=== PATIENT | male | born 1995 | race Caucasian/White ===

== ENCOUNTER 2022-05-21 22:40 | Inpatient (IN) | payer BC, MEDICAID, OTHER ==
[~2022-05-21] VITALS: Ht 182.9 cm; Wt 83.9 kg
--- NOTE | 2022-05-21 23:30 | NUR ---
BIBMOTHER. VOMMITED BLOOD X 3-4 EPISODE RED TO DARK RED BLOOD. PT IS AAOX4. PATIENT ABLE TO MAKE NEEDS KNOWN. VITALS CHECKED.
[2022-05-22] MEDS ORDERED: HYDROMORPHONE INJ 2 MG/ML DISP.SYRIN IV ONE
[2022-05-22] MEDS ORDERED: PANTOPRAZOLE 80 MG in IV NS 0.9% 500 ML IV ONE ×2
[2022-05-22] MEDS ORDERED: IV NS 0.9% 1,000 ML BAG IV ONE
[2022-05-22] MEDS ORDERED: ONDANSETRON HCL/PF 4 MG/2 ML VIAL IVP ONE
[2022-05-22] MEDS ORDERED: ONDANSETRON HCL/PF 4 MG/2 ML VIAL ONE (00:06)
[2022-05-22] MEDS ORDERED: PANTOPRAZOLE 40 MG VIAL ONE ×2 (00:06→08:37)
[2022-05-22] MEDS ORDERED: HYDROMORPHONE 1 MG/1 ML DISP.SYRIN ONE (00:07)
--- NOTE | 2022-05-22 00:21 | NUR ---
IV CANNULA INSERTED ON LEFT AC G18. BLOOD DRAWN AND SENT TO LAB
--- NOTE | 2022-05-22 00:22 | NUR ---
RECTAL EXAM DONE BY DR HADDAD. SPECIMEN SENT TO LAB
--- NOTE | 2022-05-22 00:22 | NUR ---
COVID SWAB DONE
[2022-05-22 00:34] LABS: BASOPHILS % (AUTO) 0.1 % (0.0-2.0); EOSINOPHILS % (AUTO) 0.2 % (0.0-6.0); HEMATOCRIT 45 % (39-51); HEMOGLOBIN 15.1 g/dL (13.5-17.5); LYMPHOCYTES # (AUTO) 0.5 K/uL (0.8-4.8); LYMPHOCYTES % (AUTO) 4.9 % (20.0-44.0); MEAN CORPUSCULAR HGB CONC 34 g/dl (31.0-36.0); MEAN CORPUSCULAR VOLUME 90 fL (80-96); MONOCYTES # (AUTO) 0.4 K/uL (0.1-1.30); MONOCYTES % (AUTO) 3.7 % (2.0-12.0); NEUTROPHILS # (AUTO) 8.7 K/uL (1.8-8.9); NEUTROPHILS % (AUTO) 91.1 % (43.0-81.0); PLATELET COUNT (AUTO) 210 K/uL (150-450); RED BLOOD CELL COUNT(AUTO) 4.97 MIL/uL (4.5-6.0); WHITE BLOOD COUNT (AUTO) 9.5 K/uL (4.3-11.0)
[2022-05-22 00:45] LABS: CREATININE 1.1 mg/dL (0.6-1.3); POTASSIUM 3.7 mmol/L (3.5-5.1)
[2022-05-22 00:50] LABS: ALBUMIN 4.3 g/dL (3.4-5.0); BILIRUBIN,DIRECT 0.3 mg/dL (0.0-0.2); TOTAL PROTEIN, SERUM 7.5 g/dL (6.4-8.2)
--- NOTE | 2022-05-22 01:18 | NUR ---
UPDATE GIVEN TO MOTHER PRASANTH
[2022-05-22 02:13] LABS: OCCULT BLOOD STOOL NEGATIVE (NEGATIVE)
[2022-05-22] MEDS ORDERED: METOCLOPRAMIDE HCL 10 MG/2 ML VIAL ONE (02:47)
[2022-05-22] MEDS ORDERED: diphenhydrAMINE HCL 50 MG/ML VIAL ONE (02:47)
[2022-05-22] MEDS ORDERED: diphenhydrAMINE HCL 50 MG/ML VIAL IV ONE (03:00)
[2022-05-22] MEDS ORDERED: METOCLOPRAMIDE HCL 10 MG/2 ML VIAL IV ONE (03:00)
--- NOTE | 2022-05-22 03:49 | NUR ---
DR HADDAD ON THE PHONE WITH [facility] DOCTOR
--- NOTE | 2022-05-22 04:44 | NUR ---
UPDATES GIVEN TO FAMILY. MOTHER (PRASANTH) [phone]. WOULD LIKE AN UPDATE ABOUT HER SON EVERY SHIFT.
[2022-05-22] MEDS ORDERED: Z GUARD REMEDY 4 OZ OINT TP PRN (05:00)
[2022-05-22] MEDS ORDERED: ACETAMINOPHEN 325 MG TABLET PO PRN (05:00)
[2022-05-22] MEDS ORDERED: ONDANSETRON HCL/PF 4 MG/2 ML VIAL IVP PRN (05:00)
[2022-05-22] MEDS ORDERED: MAG HYDROX/AL HYDROX/SIMETH 30 ML UDC PO PRN (05:00)
[2022-05-22 05:24] LABS: BASOPHILS % (AUTO) 0.1 % (0.0-2.0); EOSINOPHILS % (AUTO) 0.2 % (0.0-6.0); HEMATOCRIT 41 % (39-51); HEMOGLOBIN 13.7 g/dL (13.5-17.5); LYMPHOCYTES # (AUTO) 0.5 K/uL (0.8-4.8); LYMPHOCYTES % (AUTO) 7.1 % (20.0-44.0); MEAN CORPUSCULAR HGB CONC 34 g/dl (31.0-36.0); MEAN CORPUSCULAR VOLUME 90 fL (80-96); MONOCYTES # (AUTO) 0.4 K/uL (0.1-1.30); MONOCYTES % (AUTO) 5.9 % (2.0-12.0); NEUTROPHILS # (AUTO) 6.4 K/uL (1.8-8.9); NEUTROPHILS % (AUTO) 86.7 % (43.0-81.0); PLATELET COUNT (AUTO) 192 K/uL (150-450); RED BLOOD CELL COUNT(AUTO) 4.55 MIL/uL (4.5-6.0); WHITE BLOOD COUNT (AUTO) 7.4 K/uL (4.3-11.0)
[2022-05-22 05:41] LABS: ALBUMIN 3.6 g/dL (3.4-5.0); BILIRUBIN,TOTAL 0.9 mg/dL (0.2-1.0); CALCIUM, SERUM 8.4 mg/dL (8.5-10.1); MAGNESIUM 1.8 mg/dL (1.8-2.4); POTASSIUM 3.5 mmol/L (3.5-5.1); TOTAL PROTEIN, SERUM 6.5 g/dL (6.4-8.2)
[2022-05-22 05:50] LABS: THYROID STIMULATING HORMONE 0.835 uIU/mL (0.358-3.74)
--- NOTE | 2022-05-22 08:09 | NUR ---
SEEN BY DR ESCALERA
[2022-05-22] MEDS: PANTOPRAZOLE 40 MG VIAL IV SCH ×2 (08:48→21:05)
[2022-05-22] MEDS: IV D5/0.45 NACL 1,000 ML IV PRN ×2 (09:30→23:25)
--- NOTE | 2022-05-22 13:30 | NUR ---
GOT BED 110
--- NOTE | 2022-05-22 13:57 | NUR ---
REPORT GIVEN TO OLAF DAVENPORT FOR TRAVIS
--- NOTE | 2022-05-22 14:53 | NUR ---
RN NOTE RECEIVED PT VIA ELIAN. NOT IN DISTRESS. IN ROOM AIR. V/S STABLE.
[2022-05-22 16:00] VITALS: BP 117/56
--- NOTE | 2022-05-22 16:02 | NUR ---
ms rn note per dr barboza to start clear liquid diet of no egd ,called surgery department no egd schedule today
--- NOTE | 2022-05-22 19:14 | NUR ---
RN NOTE PT RESTING IN BED, IN ROOM AIR. NOT IN DISTRESS. NO EPISODES OF HEMATEMESIS AT THIS TIME. MEDICATED WITH ZOFRAN FOR NAUSEA WITH GOOD EFFECT. V/S STABLE. WILL CONT TO MONITOR.
[2022-05-22 20:00] VITALS: BP 121/55
--- NOTE | 2022-05-22 20:00 | NUR ---
MS RN OPENING NOTES PT RECEIVED IN BED AWAKE A/OX4 AMBULATORY AND RESPONSIVE. ON R/A NO SOB NO DISTRESS NOTED V/S STABLE AFEBRILE .ON RIGHT FOREARM g18 INTACT AND PATENT ,IVF OF D5 1/2 NS AT 75CC/HR INFUSING WELL ALL DUE MEDS GIVEN ORDERED .NO ASE NOTED . ALL SAFETY PRECAUTION IN PLACE PER PROTOCOL. WILL CONTINUE TO MONITOR PTS.
--- NOTE | 2022-05-22 22:00 | NUR ---
MS RN NOTES RECEIVED ORDER PTS FOR EGD MT , PTS MADE AWARE CONSENTED FOR PROCEDURE , PTS INSTRUCTED TO BE NPO POST MN . PTS VERBALIZED INSTRUCTION.
[2022-05-23 04:00] VITALS: BP 146/73
--- NOTE | 2022-05-23 05:59 | NUR ---
ms rn notes Pts remains in bed a/ox4 ,on r/a sating 100% remain npo status , for egd today at 130pm , all needs attended to call light within reach. will endorse to rn day shift for continuity of care.
[2022-05-23 06:54] LABS: BASOPHILS % (AUTO) 0.2 % (0.0-2.0); EOSINOPHILS % (AUTO) 3.4 % (0.0-6.0); HEMATOCRIT 42 % (39-51); HEMOGLOBIN 13.9 g/dL (13.5-17.5); LYMPHOCYTES # (AUTO) 0.9 K/uL (0.8-4.8); MEAN CORPUSCULAR HGB CONC 33 g/dl (31.0-36.0); MEAN CORPUSCULAR VOLUME 91 fL (80-96); MONOCYTES # (AUTO) 0.6 K/uL (0.1-1.30); MONOCYTES % (AUTO) 13.5 % (2.0-12.0); NEUTROPHILS # (AUTO) 2.9 K/uL (1.8-8.9); NEUTROPHILS % (AUTO) 63.9 % (43.0-81.0); PLATELET COUNT (AUTO) 184 K/uL (150-450); RED BLOOD CELL COUNT(AUTO) 4.64 MIL/uL (4.5-6.0); WHITE BLOOD COUNT (AUTO) 4.6 K/uL (4.3-11.0)
--- NOTE | 2022-05-23 07:20 | NUR ---
RN opening notes: received pt in bed asleep easily arousable, alert and oriented x 4, not in any distress,o2 sat 98%.denied any pain or discomfort, no n//v at this time, pt is npo for EGD, bed in low and locked position,call light within reach . saline lock on RFA patent and flushed well.will monitor
[2022-05-23 07:37] LABS: CALCIUM, SERUM 8.8 mg/dL (8.5-10.1); POTASSIUM 3.7 mmol/L (3.5-5.1)
[2022-05-23 08:00] VITALS: BP 123/63
[2022-05-23] MEDS: PANTOPRAZOLE 40 MG VIAL IV SCH (08:58)
[2022-05-23] MEDS ORDERED: PANT40TA2 PO (09:46)
[2022-05-23] MEDS: IV D5/0.45 NACL 1,000 ML IV PRN (11:19)
[2022-05-23 13:25] VITALS: BP 128/56
--- NOTE | 2022-05-23 15:59 | NUR ---
RN NOTE PATIENT WAS DISCHARGED FROM THE [facility] , DISCHARGE INSTRUCTIONS WERE PROVIDED . PATIENT VERBALIZED UNDERSTANDING.
== END 2022-05-23 16:18 | disposition home or self-care (01) | DRG 391 ==
LOC: ER 22:42 → TRANSITION 05-22 05:46 → MEDSG1 05-22 13:39
PROVIDERS: ADMIT Internal Medicine; ATTEND Internal Medicine
DX: A08.4 Viral intestinal infection, unspecified (principal); K22.6 Gastro-esophageal laceration-hemorrhage syndrome; J45.909 Unspecified asthma, uncomplicated; Z20.822 Contact with and (suspected) exposure to COVID-19; K21.9 Gastro-esophageal reflux disease without esophagitis; F17.210 Nicotine dependence, cigarettes, uncomplicated
CPT/HCPCS: 36415; 71045-TC; 80048-TC; 80053-TC; 80076-TC; 82272-TC; 83690-TC; 83735-TC; 84100-TC; 84443-TC; 85025-TC; 85730-TC; 86850-TC; 87081-TC; C9113; C9803; G0378; J1170; J1200; J2405; J2765; J3490; J7030